=== PATIENT | female | born 1985 | race Caucasian/White ===

== ENCOUNTER 2020-03-07 16:06 | Outpatient (CLI) | payer BC, SELFPAY ==
--- NOTE | ~2020-03-07 | XR_ITS ---
EXAMINATION: XR foot LT min 3V DATE: 03/07/2020 17:09 INDICATION: Left foot pain TECHNIQUE: Dorsoplantar, lateral, and 2 oblique views of the left foot were obtained. COMPARISON: None. FINDINGS: There is no fracture, dislocation, or subluxation. The bones, soft tissues, and joint space s are normal. No radiopaque foreign body is identified. IMPRESSION: 1. No acute osseous abnormality or evidence of radiopaque foreign body. Reviewed, dictated and finalized at location A.
== END 2020-03-07 16:07 | disposition home or self-care (01) ==
LOC: ANHIMG 16:08
PROVIDERS: PCP Nurse Practitioner Adult Health; Visit Provider Nurse Practitioner Adult Health
DX: S99.922A Unspecified injury of left foot, initial encounter (principal)
CPT/HCPCS: 73630

== ENCOUNTER 2023-08-29 18:40 | Emergency (ER) | payer BC, SELFPAY ==
[2023-08-29 18:47] VITALS: BP 119/71; PULSE 91; RESP 18; TEMP 36.8; O2SAT 100
--- NOTE | 2023-08-29 18:47 | ED.URI ---
HPI - URI/Sore Throat General Chief Complaint: Upper Respiratory Infection Stated Complaint: Congestion Time Seen by Provider: 08/29/23 18:48 Source: patient Mode of arrival: ambulatory Limitations: no limitations History of Present Illness HPI Narrative: Rossi is a 37-year-old female patient presenting to the clinic today with complaints of sinus congestion x1 month and green drainage coming from bilateral eyes times 1-2 days. She reports that her eyes are itching and bothering her as well. Denies any known fever or chills. Is blowing out green nasal drainage. MD elicited complaint: rhinorrhea, nasal congestion and sinus pain Related Data Home Medications Medication Instructions Recorded Confirmed escitalopram oxalate 10 mg tablet 10 mg PO DAILY 01/21/23 08/29/23 norethindrone 1 mg-ethinyl 1 tablet PO DAILY 01/21/23 08/29/23 estradiol 20 mcg (21)-iron 75 mg (7) tablet (June12/07 (28)) lisdexamfetamine 60 mg capsule 60 mg PO DAILY 08/29/23 08/29/23 (Vyvanse) Allergies Allergy/AdvReac Type Severity Reaction Status Date / Time cefuroxime Allergy Severe Hives / Verified 08/29/23 18:51 Red Face levofloxacin Allergy Severe Hives / Verified 08/29/23 18:51 Red Face Review of Systems Review of Systems: Pertinent positives per HPI. Patient denies any fever, chills, rash, headache, visual changes, dizziness, cough, shortness of breath, chest pain, palpitations, nausea, vomiting, diarrhea, constipation, abdominal pain, or any urinary issues. [facility] Past Medical History Medical History Allergies Anxiety Asthma Family History Family History Mother Asthma Depression Grandparent Heart disease Cerebrovascular accident Social History Social History Smoking status: Never smoker Tobacco type: e-cigarettes/vaping Alcohol intake: never Substance use: never Lack of Transportation: No Lack of Food: Never True Current Housing: I Have Housing Concerned About Future Housing: No Difficulty Paying Gas/Electric Bills: No Difficulty Paying for Meds: No Currently Unemployed: No Education: Associate Degree Difficulty w/ Childcare or Family Care: No Comments At the time of my signature, I reviewed and agree with the nursing past medical, surgical, social, and family history. There is no relevant family history pertinent to the patient complaint. Exam Narrative: General: Well-developed, well nourished, in no apparent distress Head: Normocephalic, atraumatic Eyes: Pupils equally round and reactive to light bilaterally, EOM intact, sclera and conjunctive injected, green discharge, mild lids swelling Ears: TMs intact and clear, ear canals clear, no drainage, grossly hearing normal. Nose: Nares patent, clear nasal discharge, moderate inflammation, maxilla sinus tenderness. Mouth: Oral pharynx without lesions or masses, good dentition, MMM. Postnasal drip Neck: Supple, trachea midline, no enlargement of anterior or posterior cervical nodes, no thyroid masses or goiter palpable. Cardio: Regular rate and rhythm, s1 and s2 normal, no murmur appreciated. Resp: Clear to auscultation bilaterally, no rhonchi, rales, wheezing or rubs Course Course Emergency Course: Portions of this record may have been created with voice recognition software. Level of Care: Express Care Visit Vital Signs Vital signs: Vital signs reviewed MDM - URI/Sore Throat MDM Narrative Medical decision making narrative: At the time of visit patient is resting comfortably on the exam table. I suspect patient has acute bacterial rhinosinusitis with conjunctivitis. Prescription for tobramycin, Augmentin, and prednisone was prescribed for the patient. Patient has allergies to cefuroxime but has taken penicillins/Augmentin be
== END 2023-08-29 19:00 | disposition home or self-care (01) ==
PROVIDERS: Emergency Provider Nurse Practitioner Family; PCP Family Medicine
DX: J01.90 Acute sinusitis, unspecified (principal); H10.33 Unspecified acute conjunctivitis, bilateral; J45.909 Unspecified asthma, uncomplicated; F41.9 Anxiety disorder, unspecified
CPT/HCPCS: 99213; G0463

== ENCOUNTER 2024-01-06 17:24 | Emergency (ER) | payer BC, SELFPAY ==
--- NOTE | 2024-01-06 17:27 | ED.URI ---
HPI - URI/Sore Throat General Chief Complaint: Upper Respiratory Infection Stated Complaint: Sore Throat, Headache, Chills, Bodayache, Earache Time Seen by Provider: 01/06/24 17:28 Source: patient Mode of arrival: ambulatory Limitations: no limitations History of Present Illness HPI Narrative: Josefa is a 38-year-old female patient presenting to the clinic today with complaints of sore throat, headache, chills, body aches, and bilateral ear pain times 1-2 days. 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 MD elicited complaint: sore throat and nasal congestion Related Data Home Medications Medication Instructions Recorded Confirmed escitalopram oxalate 10 mg tablet 10 mg PO DAILY 01/21/23 01/06/24 norethindrone 1 mg-ethinyl 1 tablet PO DAILY 01/21/23 01/06/24 estradiol 20 mcg (21)-iron 75 mg (7) tablet (12/07 (28)) lisdexamfetamine 60 mg capsule 60 mg PO DAILY 08/29/23 01/06/24 (Vyvanse) Allergies Allergy/AdvReac Type Severity Reaction Status Date / Time cefuroxime AdvReac Intermediate Hives / Verified 01/06/24 17:26 Red Face levofloxacin AdvReac Intermediate Hives / Verified 01/06/24 17:26 Red Face Review of Systems Review of Systems: Pertinent positives per HPI. Patient denies any rash, headache, visual changes, dizziness, cough, shortness of breath, chest pain, palpitations, nausea, vomiting, diarrhea, constipation, abdominal pain, or any urinary issues. [facility] Past Medical History Medical History Allergies Anxiety Asthma Family History Family History Mother Asthma Depression Grandparent Heart disease Cerebrovascular accident Social History Social History Smoking status: Never smoker Tobacco type: e-cigarettes/vaping Alcohol intake: never Substance use: never Lack of Transportation: No Lack of Food: Never True Current Housing: I Have Housing Concerned About Future Housing: No Difficulty Paying Gas/Electric Bills: No Difficulty Paying for Meds: No Currently Unemployed: No Education: Associate Degree Difficulty w/ Childcare or Family Care: No Comments At the time of my signature, I reviewed and agree with the nursing past medical, surgical, social, and family history. There is no relevant family history pertinent to the patient complaint. Exam Narrative: General: Well-developed, well nourished, in no apparent distress Head: Normocephalic, atraumatic Eyes: Pupils equally round and reactive to light bilaterally, EOM intact, sclera and conjunctive clear, no discharge, lids normal Ears: TMs intact and clear, ear canals clear, no drainage, grossly hearing normal. Nose: Nares patent, clear nasal discharge, no inflammation, no sinus tenderness. Mouth: Oral pharynx red with bilateral tonsillar swelling and exudate without lesions or masses, good dentition, MMM. Neck: Supple, trachea midline, enlargement of anterior cervical nodes, no thyroid masses or goiter palpable. Cardio: Regular rate and rhythm, s1 and s2 normal, no murmur appreciated. Resp: Clear to auscultation bilaterally, no rhonchi, rales, wheezing or rubs Course Course Emergency Course: Portions of this record may have been created with voice recognition software. Level of Care: Express Care Visit Vital Signs Vital signs: Vital signs reviewed MDM - URI/Sore Throat MDM Narrative Medical decision making narrative: At the time of visit patient is resting comfortably on the exam table. Patient appears to be nontoxic. Labs: Strep test was positive. COVID and influenza testing was negative. Plan: Prescription for amoxicillin was sent to the pharmacy. Work note was given. supportive measures were discussed with the patient and they voiced understanding discharge instructions and agrees to
[2024-01-06 17:32] VITALS: BP 128/70; PULSE 118; RESP 18; TEMP 38.1; O2SAT 100
== END 2024-01-06 17:55 | disposition home or self-care (01) ==
PROVIDERS: Emergency Provider Nurse Practitioner Family; PCP Family Medicine
DX: J02.0 Streptococcal pharyngitis (principal); Z20.822 Contact with and (suspected) exposure to COVID-19; F41.9 Anxiety disorder, unspecified; J45.909 Unspecified asthma, uncomplicated
CPT/HCPCS: 87426; 87804; 87880; 99213; G0463

== ENCOUNTER 2024-04-15 11:48 | Outpatient (CLI) | payer BC, SELFPAY ==
--- NOTE | ~2024-04-15 | XR_ITS ---
EXAM: XR elbow LT 2V DATE: 04/15/2024 12:01 HISTORY: Pain in left elbow, feels like it gets locked, no injury . COMPARISON: None available. FINDINGS: Normal mineralization. No fracture or dislocation. No lytic or blastic lesion. Joint space s are maintained. No erosion or periosteal change. Amorphous calcification in the triceps tendon. IMPRESSION: No acute osseous finding the left elbow. Calcific triceps tendinitis. Reviewed, dictated and finalized at location K. IMPRESSION: No acute osseous finding the left elbow. Calcific triceps tendiniti s.
[2024-04-15 19:24] LABS: Hematocrit 46.4 % (37.0-47.0); Hemoglobin 14.7 g/dL (12.0-15.0); Mean Corpuscular HGB Conc 31.7 g/dl (32-36); Mean Corpuscular Hemoglobin 29.2 pg (26-34); Mean Corpuscular Volume 92.1 fl (80-100); Platelet Count Result 295 k/mm3 (150-375); Red Blood Count 5.04 M/mm3 (4.2-5.4); Red Cell Distribution Width 13.2 % (11.5-14.5); White Blood Count 7.2 K/mm3 (4.5-10.0)
[2024-04-15 19:57] LABS: Appearance Urine Clear (Clear); Bilirubin Urine Negative (Negative); Blood Urine Negative (Negative); Color Urine Yellow (Yellow); Glucose Urine UA Negative (Negative); Ketones Urine Negative (Negative); Leukocyte Esterase Ur Negative LEU/UL (Negative); Nitrate Urine Negative (Negative); Protein Urine Negative (Negative); Specific Grav Ur 1.022 (1.001-1.035); Urobilinogen Urine 0.2 mg/dL (<2.0); pH Urine 6.5 (5.0-9.0)
[2024-04-15 20:00] LABS: Add Urine Microscopic? NO
[2024-04-15 20:09] LABS: Iron 110 ug/dL (37-170)
[2024-04-15 20:19] LABS: Percent Iron Saturation 33 % (20-50)
[2024-04-15 20:26] LABS: Alanine Aminotransferase 19 U/L (6-35); Alkaline Phosphatase 83 U/L (38-126); Anion Gap 6 mmol/L (4-12); Aspartate Amino Transferase 99 U/L (14-36); Bilirubin,Total 0.8 mg/dL (0.2-1.3); Blood Urea Nitrogen 13 mg/dL (7-17); Calcium 9.4 mg/dL (8.4-10.2); Carbon Dioxide 30 mmol/L (22-30); Chloride 103 mmol/L (98-107); Cholesterol 183 mg/dL (0-200); Estimated Glomerular Filt Rate > 60; Glucose 81 mg/dL (65-110); HDL Direct 78 mg/dL; Potassium 4.1 mmol/L (3.4-5.0); Sodium 139 mmol/L (137-145); Triglycerides 65 mg/dL (<150)
[2024-04-15 20:38] LABS: LDL Cholesterol Direct 72 mg/dL
[2024-04-15 21:24] LABS: Hemoglobin A1C 4.9 % (<5.7)
[2024-04-15 21:34] LABS: Folic Acid 9.6 ng/mL (2.76->20)
== END 2024-04-15 11:49 | disposition home or self-care (01) ==
LOC: ANHBWCLAB 11:49
PROVIDERS: PCP Nurse Practitioner Adult Health; Visit Provider Nurse Practitioner Adult Health
DX: M65.222 Calcific tendinitis, left upper arm (principal); R53.83 Other fatigue; R63.1 Polydipsia; R39.9 Unspecified symptoms and signs involving the genitourinary system; Z13.9 Encounter for screening, unspecified
CPT/HCPCS: 36415; 73070; 80053; 80061; 81003; 82607; 82728; 82746; 83036; 83540; 83550; 84443; 85027

== ENCOUNTER 2024-04-20 11:53 | Outpatient (CLI) | payer BC, SELFPAY ==
[2024-04-20 19:44] LABS: Alanine Aminotransferase 17 U/L (6-35); Albumin Level 4.5 g/dL (3.5-5.1); Alkaline Phosphatase 79 U/L (38-126); Aspartate Amino Transferase 63 U/L (14-36); Bilirubin,Total 0.6 mg/dL (0.2-1.3)
== END 2024-04-20 11:54 | disposition home or self-care (01) ==
LOC: ANHBWCLAB 11:54
PROVIDERS: PCP Nurse Practitioner Adult Health; Visit Provider Nurse Practitioner Adult Health
DX: R74.8 Abnormal levels of other serum enzymes (principal)
CPT/HCPCS: 36415; 80076

== ENCOUNTER 2024-06-21 13:10 | Emergency (ER) | payer BC, SELFPAY ==
--- NOTE | ~2024-06-21 | XR_ITS ---
Right foot Technique: AP, oblique, and lateral views were obtained. Clinical History: Status post fall, plantar laceration Findings: No acute fracture or dislocation is seen. Osseous alignment is anatomic. Joint spaces are p reserved without erosive or degenerative change. Soft tissues are unremarkable. Impression: Unremarkable right foot radiographs. Reviewed, dictated and finalized at location . Impression: Unremarkable right foot radiographs.
[2024-06-21 13:21] VITALS: BP 112/65; PULSE 80; RESP 18; TEMP 36.8; O2SAT 100
[2024-06-21 13:22] VITALS: BP 112/65; PULSE 80; RESP 18; TEMP 36.8; O2SAT 100
--- NOTE | 2024-06-21 13:49 | ED.FALL ---
HPI - Fall General Chief Complaint: Fall Stated Complaint: fall Time Seen by Provider: 06/21/24 13:35 Source: patient, family and RN notes reviewed Mode of arrival: ambulatory Limitations: no limitations History of Present Illness HPI Narrative: Patient presents today with injury to her right foot. Yesterday, emergently, she jumped barefoot into her lumbee at home to save her dog, approx 8 feet down onto rocks. She reports a laceration to the bottom of her right foot and burning pain throughout the foot. She cleaned the foot with Bactine. States pain is worse today and currently rates her pain 8/10. She is unsure of the date of her last tetanus vaccine. Related Data Home Medications Medication Instructions Recorded Confirmed drospirenone (contraceptive) 4 mg 1 tablet PO DAILY 04/15/24 06/21/24 (28) tablet (Slynd) Allergies Allergy/AdvReac Type Severity Reaction Status Date / Time cefuroxime Allergy Intermediate Hives / Verified 06/21/24 13:21 Red Face levofloxacin Allergy Intermediate Hives / Verified 06/21/24 13:21 Red Face Review of Systems Review of Systems: CONSTITUTIONAL: Denies body aches, fever, chills, or sweats. EYES: Denies visual changes, redness, or discharge. ENT: Denies rhinorrhea, congestion, sore throat, or otalgia. CARDIOVASCULAR: Denies chest pain, palpitations, or edema. RESPIRATORY: Denies cough or dyspnea. GASTROINTESTINAL: Denies abdominal pain, nausea, vomiting, or diarrhea. GENITOURINARY: Denies dysuria or hematuria. SKIN: Denies rash, itching. +right foot laceration MUSCULOSKELETAL: right foot injury NEUROLOGIC: Denies headache, numbness, tingling, or weakness. PSYCH: Denies depression or anxiety. [facility] Past Medical History Medical History (Updated 06/21/24 @ 14:30 by Enma Atkins, [employer], ) Acute adjustment disorder with anxiety Allergies Anxiety Asthma Family History Family History Mother Asthma Depression Grandparent Heart disease Cerebrovascular accident Social History Social History (Updated 04/15/24 @ 11:17 by Hue Devries MA) Smoking status: Never smoker Tobacco type: e-cigarettes/vaping Alcohol intake: never Substance use: never Do You Feel Safe in your Home?: Yes Lack of Transportation: No Lack of Food: Never True Current Housing: I Have Housing Concerned About Future Housing: No Difficulty Paying Gas/Electric Bills: No Difficulty Paying for Meds: No Currently Unemployed: No Education: Associate Degree Difficulty w/ Childcare or Family Care: No Living arrangements: with family Occupation/Education: occupation Additional occupation/education comments: [employer] Gender identity (if verbalized by the patient): Female Agree to blood products: Yes Comments At time of signature, I have reviewed and agree with nursing past medical, surgical, social and family history unless otherwise noted. Please see nursing chart for further information. There is no relevant family history pertinent to the presenting complaint Exam Narrative: GENERAL: Well-appearing, well-nourished, and in no acute distress. HEAD: Normocephalic, atraumatic. EYES: EOMI. No redness or drainage. Conjunctivae normal. ENT: Mucous membranes pink and moist. NECK: Normal AROM. CHEST: No respiratory distress. EXTREMITIES: Right foot: 2cm scabbed laceration to the callused area at the 5th MTP, plantar aspect. Area is surrounded by erythema that is spreading medially to the arch and some mild ecchymosis. This area is tender to palpation. Superficial abrasions to the dorsal 1st MTP with surrounding erythema and ecchymosis. Scattered bruising and mild edema to the toes. Distal sensation intact, capillary refill normal, pedal pulse normal. Left foot: Tiny, very superficial partial skin avulsion to middle of bottom of foot. Skin trimmed with scissors. Dressed w band
[2024-06-21] MEDS: TETANUS,DIPHTHERIA,AC PERTUSSIS ADULT (0.5 ML) BOOSTRIX IM (13:56)
== END 2024-06-21 14:35 | disposition home or self-care (01) ==
PROVIDERS: Emergency Provider Nurse Practitioner; PCP Nurse Practitioner Adult Health
DX: L03.115 Cellulitis of right lower limb (principal); S91.311A Laceration without foreign body, right foot, initial encounter; W17.89XA Other fall from one level to another, initial encounter; Z23 Encounter for immunization; F17.290 Nicotine dependence, other tobacco product, uncomplicated; J45.909 Unspecified asthma, uncomplicated
CPT/HCPCS: 73630; 90471; 90715; 99213; G0463

== ENCOUNTER 2024-10-13 14:40 | Emergency (ER) | payer BC, SELFPAY ==
[2024-10-13 14:53] VITALS: BP 114/66; PULSE 88; RESP 16; TEMP 36.8; O2SAT 100
[2024-10-13 15:03] LABS: EDSTREPNEGPOS1 Negative (Negative)
--- NOTE | 2024-10-13 15:17 | ED_ITS ---
HPI - URI/Sore Throat General Chief Complaint: Upper Respiratory Infection Stated Complaint: sore throat / Ear Pain / Headache Time Seen by Provider: 10/13/24 15:17 Source: patient Mode of arrival: ambulatory Limitations: no limitations History of Present Illness HPI Narrative: 38-year-old female presents with complaint of sore throat, nasal drainage, sinus issues, bilateral ear itching. history of sinus surgery 10 years ago. Has polyp to left sinus cavity. Stop taking her antihistamines she did not to lift they were helping. Also thinks she has tonsil stone. All systems reviewed and negative except as noted above. Related Data Home Medications Medication Instructions Recorded Confirmed drospirenone (contraceptive) 4 mg 1 tablet PO DAILY 04/15/24 10/13/24 (28) tablet (Slynd) Allergies Allergy/AdvReac Type Severity Reaction Status Date / Time cefuroxime Allergy Intermediate Hives / Verified 10/13/24 15:01 Red Face levofloxacin Allergy Intermediate Hives / Verified 10/13/24 15:01 Red Face Review of Systems Review of Systems: CONSTITUTIONAL: Denies fever, chills, or sweats. EYES: Denies visual changes, redness, or discharge. ENT: Reports rhinorrhea, congestion, sore throat, tonsil stone, bilateral ear itching CARDIOVASCULAR: Denies chest pain, palpitations, or edema. RESPIRATORY: Denies cough or dyspnea. GASTROINTESTINAL: Denies abdominal pain, nausea, vomiting, or diarrhea. GENITOURINARY: Denies dysuria or hematuria. SKIN: Denies rash or itching. MUSCULOSKELETAL: Denies back pain, joint pain, or myalgia. NEUROLOGIC: Denies headache, numbness, or weakness. PSYCHIATRIC: Denies anxiety or depression. All other systems reviewed are negative, except as documented in HPI. [facility] Past Medical History Medical History (Updated 10/13/24 @ 15:26 by Yolette Muller NP) Acute adjustment disorder with anxiety Allergies Anxiety Asthma Family History Family History Mother Asthma Depression Grandparent Heart disease Cerebrovascular accident Social History Social History (Updated 04/15/24 @ 11:17 by Hue Devries MA) Smoking status: Never smoker Tobacco type: e-cigarettes/vaping Alcohol intake: never Substance use: never Do You Feel Safe in your Home?: Yes Lack of Transportation: No Lack of Food: Never True Current Housing: I Have Housing Concerned About Future Housing: No Difficulty Paying Gas/Electric Bills: No Difficulty Paying for Meds: No Currently Unemployed: No Education: Associate Degree Difficulty w/ Childcare or Family Care: No Living arrangements: with family Occupation/Education: occupation Additional occupation/education comments: [employer] Gender identity (if verbalized by the patient): Female Agree to blood products: Yes Comments At time of signature, agree with nursing past medical, surgical, social and family history. There is no relevant family history pertinent to the presenting complaint. Exam Narrative: GENERAL: This is a well-nourished, well-developed patient, in no apparent distress. HEAD: normocephalic, atraumatic. EYES: PERRL. Sclera clear/white. Vision is grossly intact. EARS: External ears normal, auditory canals clear and without drainage, TMs normal without perforation. Hearing grossly intact. NOSE: External nose normal with Mild congestion, erythema and swelling to bilateral nares THROAT: Mucous membranes moist, posterior pharynx clear. tonsil stone to right tonsil. A mild erythema with postnasal drainage noted. NECK: Neck supple, non-tender without lymphadenopathy, masses or thyromegaly. CARDIOVASCULAR: Regular rate and rhythm without murmurs, gallops, or rubs. RESPIRATORY: Clear to auscultation. Breath sounds equal bilaterally. No wheezes, rales, or rhonchi. SKIN: warm, Dry, intact with no suspicious lesions or rash, good texture and turgor. NEURO: awake, alert, and oriented to person, place and time. There were no obvious focal neurologic abnormalities. EXTREMITIES: No joint tenderness, effusion, or edema noted. Course Course Level of Care: Express Care Visit Vital Signs Vital signs: Vital Signs Temperature 36.8 C 10/13/24 14:53 Pulse Rate 88 10/13/24 14:53 Respiratory Rate 16 10/13/24 14:53 Blood Pressure 114/66 10/13/24 14:53 Pulse Oximetry 100 10/13/24 14:53 Oxygen Delivery Room Air 10/13/24 14:53 Temperature 36.8 C 10/13/24 14:53 Pulse Rate 88 10/13/24 14:53 Respiratory Rate 16 10/13/24 14:53 Blood Pressure 114/66 10/13/24 14:53 Pulse Oximetry 100 10/13/24 14:53 Oxygen Delivery Room Air 10/13/24 14:53 reviewed MDM - URI/Sore Throat MDM Narrative Medical decision making narrative: patient is ear canals and TMs normal. No signs infection or dry skin that may be causing itching. Recommend she restart her antihistamines. Will treat patie nt with antibiotic for bacterial sinusitis due to duration of symptoms. Patient is aware of diagnosis, understands and agrees to treatment plan. Anticipatory guidance given. Patient agrees to follow-up as directed and is aware of reasons to seek care at the emergency department. Portions of this record may have been created with voice recognition software Lab Data Labs: Lab Results 10/13/24 Range/Units 15:00 POC Grp A Strep Screen Negative (Negative) Discharge Plan Discharge Clinical Impression: Acute bacterial sinusitis, Tonsil stone Patient Disposition: Home, Self-Care Condition: Stable Instructions: Antibiotic Form, Sinusitis (ED) Additional Instructions: Take medications as prescribed. Start an [id number] antihistamine such as Claritin or Zyrtec and take as directed on packaging. Gargle with salt water or mouthwash to help remove tonsil stone. Follow-up with your primary care physician if symptoms are not improving. Prescriptions: New azelastine 205.5 mcg (0.15 %) spray,non-aerosol 2 spray intranasal DAILY Qty: 30 0RF Rx Instructions: administer into each nostril amoxicillin 875 mg tablet 875 mg PO Q12H 10 Days Qty: 20 0RF No Action Slynd 4 mg (28) tablet 1 tablet PO DAILY cyanocobalamin (vitamin B-12) 1,000 mcg tablet, sublingual 1,000 mcg sublingual DAILY Qty: 90 1RF escitalopram oxalate 10 mg tablet See Rx Instructions .ROUTE .COMPLEX Qty: 90 0RF Dose Instruction: TAKE 1 TABLET BY MOUTH DAILY Rx Instructions: TAKE 1 TABLET BY MOUTH DAILY lisdexamfetamine [Vyvanse] 60 mg capsule 60 mg PO DAILY Qty: 30 0RF Follow-up/Referrals: Shirley Argueta APRN [Primary Care Provider] - Time of Disposition: 15:27
== END 2024-10-13 15:35 | disposition home or self-care (01) ==
PROVIDERS: Emergency Provider Nurse Practitioner Family; PCP Nurse Practitioner Adult Health
DX: J01.90 Acute sinusitis, unspecified (principal); B96.89 Other specified bacterial agents as the cause of diseases classified elsewhere; J35.8 Other chronic diseases of tonsils and adenoids
CPT/HCPCS: 87081; 87880; 99213; G0463

== ENCOUNTER 2025-04-20 14:00 | Outpatient (CLI) | payer BC, SELFPAY ==
--- OUTSIDE RECORDS SUMMARY | 2025-04-20 14:04 | XMS_ITS | Clinical Summary ---
Author Organization [facility] Address [address] [place] [address] Care Team Providers Care Mobile Home Set Up Person Name Role Phone Shirley Argueta Primary Care Provider + Source Comments [facility],non-owned Affiliates and Associated Physician Practices is amultiple site organization consisting of ambulatory clinics and hospital sitesin [place], [place], [place] and [place]. This disclosure is being madepursuant to the Care Everywhere program and may not contain all information available regarding this patient. Last updated 18.[facility] Allergies Active Allergy Reactions Criticality Noted Date Comments Cefuroxime Swelling,Unknown,Sandro sea and/or Vomiting Medium 02/21/2021 Throat and mouth swelling and itching Levofloxacin Swelling,Urticaria High 02/21/2021 Throat and mouth swelling and itching Medications * Be aware that medications may not be up to date on this document. Alwaysverify current medications with the patient. albuterol HFA (Proventil; Ventolin; Proair) 108 (90 Base) MCG/ACT inhaler Inhale 2 (two) puffs by mouth every 4 hours as needed Active escitalopram (Lexapro) 10 MG tablet Take 1 (one) tablet by mouth once daily Active lisdexamfetami ne (Vyvanse) 60 MG capsule Take 1 (one) capsule by mouth once daily Active Drospirenone (Slynd) 4 MG TABS tablet Take 1 (one) tablet by mouth once daily Active acetaminophen (Tylenol) 325 MG tablet Take 2 (two) tablets by mouth every 6 hours Maximum allowable Acetaminophen amount = 4 Grams (4000 mg) / 24 hours. 60 tablet 04/16/2025 12:26 PM CDT 5 Active ibuprofen (Motrin) 600 MG tablet Take 1 (one) tablet by mouth every 6 hours 30 tablet 04/16/2025 12:26 PM CDT 5 Active oxyCODONE, immediate release, (Roxicodone) 5 MG tabletIndicati ons:Radial scar of breast Take 1 (one) tablet by mouth every 6 hours as needed for Pain 12 tablet 04/16/2025 12:26 PM CDT 5 Active Encounters Date Type Department Care Team Description 04/16/2025 9:20 AM CDT Anesthesia Event [facility] [address] [place] [address] Wellington Gaspar II, MD [place], Nutressa A, APRN-NEWSPAPER PHOTOGRAPHER 04/16/2025 8:56 AM CDT - 04/16/2025 10:16 AM CDT Surgery [facility] [address] [place] [address] Genesis Cerna MD LEFT BREAST EXCISIONAL BIOPSY WITH MAGSEED GUIDANCE 04/16/2025 6:58 AM CDT - 04/16/2025 12:40 PM CDT Hospital Encounter [facility] [address] [place] [address] Genesis Cerna MD Surgery General Discharge Disposition: Home or Self Care 04/16/2025 Travel 04/15/2025 Travel 04/08/2025 10:56 AM CDT - 04/08/2025 11:59 PM CDT Hospital Encounter [facility] [address] [place] [id number] Shirley Argueta FARM LABORER-NEWSPAPER PHOTOGRAPHER Discharge Disposition: Home or Self Care 04/08/2025 Travel 03/26/2025 Orders Only [facility] - General Surgery [address] [place] [phone] Genesis Cerna MD Radial scar of left breast 03/25/2025 Telephone [facility] - General Surgery [address] [place] [phone] Bessie Mena, [place] Discuss Surgery 03/12/2025 10:19 AM CDT - 03/12/2025 11:59 PM CDT Hospital Encounter [facility] - Outside Imaging Discharge Disposition: Home or Self Care 03/12/2025 10:19 AM CDT - 03/12/2025 11:59 PM CDT Hospital Encounter [facility] - Outside Imaging Discharge Disposition: Home or Self Care 03/09/2025 11:25 AM CDT - 03/09/2025 11:59 PM CDT Hospital Encounter [address] [address] Genesis Cerna MD Discharge Disposition: Home or Self Care 03/09/2025 10:00 AM CDT Office Visit [facility] - General Surgery [address] [place] [phone] Genesis Cerna MD Radial scar of left breast (Primary Dx); Left axillary pain 03/05/[address] [address] Pat Spencer, [place] Follow-up (Pt confirmed for Dr Cerna appt 03/09/25 with 0930 arrival to [facility] following breast biopsy results at [facility], radial scar/complex sclerosing lesion. Reviewed POC and arrival location for her appt. ) 02/11/2025 8:00 AM CDT - 02/11/2025 8:17 AM CDT Hospital Encounter [address] [address] Shirley Argueta, CASI-NEWSPAPER PHOTOGRAPHER Discharge Disposition: Home or Self Care 02/11/2025 Telephone [facility] - Vascular Surgery [address] [facility] [place] [address] Frederic Deng MD Procedure 02/11/2025 Travel 02/01/2025 3:15 PM CDT - 02/01/2025 11:59 PM CDT Hospital Encounter [address] [address] Shirley Argueta APRN-CORINNE Discharge Disposition: Home or Self Care 02/01/2025 Travel 01/25/2025 Lab Requisition [facility] [address] [place] [phone] Terra Jackman PA 01/25/2025 Lab Requisition [facility] [address] [place] [phone] Talita Lopez MD from Last 3 Months Social History Tobacco Use Types Packs/Day Years Used Date Smoking Tobacco: Former Cigarettes Smokeless Tobacco: Never Tobacco Cessation:Counseling Given: Not Answered Alcohol Use Standard Drinks/Week Comments Never 0 (1 standard drink = 0.6 oz pur e alcohol) AUDIT-C Answer Date Recorded Q1: How often do you have a drink containing alc ohol? Monthly or less 06/12/2024 Q2: How many drinks containi ng alcohol do you have on a typical day when you are drinking? 1 or 2 06/12/2024 Q3: How often do you have si x or more drinks on one occasion? Never 06/12/2024 Comments No Sex and Gender Information Value Date Recorded Sex Assigned at Female 01/27/2025 8:36 PM CDT Legal Sex Female 2:22 PM CDT Gender Identity Female 01/27/2025 8:36 PM CDT Sexual Orientation Straight 01/27/2025 8: 36 PM CDT Last Filed Vital Signs Vital Sign Reading Time Taken Comments Blood Pressure 108/82 04/16/2025 11:55 AM CDT Pulse 70 04/16/2025 11:55 AM CDT Temperature 36.6 C (97.8 F) 04/16/2025 12:26 PM CDT Respiratory Rate 12 04/16/2025 11:55 AM CDT Oxygen Saturation 99% 04/16/2025 11:55 AM CDT Inhaled Oxygen Concentration - - Weight 89.8 kg (198 lb) 04/16/2025 8:00 AM CDT Height 172.7 cm (5' 8) 04/16/2025 8:00 AM CDT Body Mass Index 30.11 04/16/2025 8:00 AM CDT Plan of Treatment Upcoming Encounters Date Type Department Care Team (Late st Contact Info) Description 09/16/2025 10:00 AM CDT Appointment [facility] [address] [place] [address] Genesis Cerna MD [address] [facility] [address] [place] [phone] 09/16/2025 10:30 AM CDT Appointment [facility] [address] [place] [phone] Genesis Cerna MD [address] [facility] [address] [place] [address] 09/16/2025 11:30 AM CDT Office Visit [facility] - General Surgery [address] [place] [phone] Genesis Cerna MD [address] [facility] [address] [place] [address] Health Maintenance Due Date Last Done Comments PAP SMEAR 1984 HIV SCREENING 1999 HEPATITIS C SCREENING 11/26/2002 DTAP/TDAP/TD VACCINES (1 - Tdap) 2003 HEPATITIS B VACCINE (1 of 3 - 19+ 3-dose series) 2003 COVID-19 VACCINE ( - 2023-2 5 season) 2024 DEPRESSION SCREENING 11/18/2024 INFLUENZA VACCINE (Season Ended) 2025 MAMMOGRAM 02/11/2027 02/11/2025, 02/01/2025 SCREENING FOR DIABETES 01/26/2028 , 01/25/2025, 01/25/2025 LIPID TESTING 01/25/2030 01/25/2025 ZOSTER VACCINE (1 of 2) 2034 HIB VACCINE Aged Out No longer eligi ble based on patient's age to complete this topic HPV VACCINE Aged Out No longer eligi ble based on patient's age to complete this topic MENINGOCOCCAL (Group B) VACCINE SHARED DECISION-MAKING Aged Out No longer eligible based on patient's age to complete this topic MENINGOCOCCAL GROUPS A/C/Y/W VACCINE Aged Out No longer eligible b ased on patient's age to complete this topic PNEUMOCOCCAL VACCINE Aged Out No long er eligible based on patient's age to complete this topic Medical Devices Implanted Type Area Sustainability Specialist Device Identifier Shelf Expiration Date Model / Serial / Lot Coil Pod 60cm 10-12mm Embl Implanted:Qty: 1 on 06/12/2024 by Frederic Deng MD at [facility] Left: [employer] 05/23/2029 [id number] / / [id number] Coil Pod 60cm Pk Embl J-Sft Strl Lf Implanted:Qty: 1 on 06/12/2024 by Frederic Deng MD at [facility] Left: [employer] 08/05/2031 [id number] / / [id number] Coil Pod 45cm Pk Embl J-Sft Strl Lf Implanted:Qty: 1 on 06/12/2024 by Frederic Deng MD at [facility] Left: [employer] 10/15/2026 [id number] / / [id number] Coil Jacquie Pod 60cm 8mm Cmplx Occulusion Implanted:Qty: 1 on 06/12/2024 by Frederic Deng MD at [facility] Left: [employer] 12/29/2030 [id number] / / [id number] Procedures Procedure Name Priority Date/Time Associated Diagnosis Comments PATHOLOGY TISSUE Routine 04/16/2025 10:00 AM CDT Radial scar of breast LARYNGEAL MASK AIRWAY Routine 04/16/2025 9:41 AM CDT MAMMO BREAST LEFT SPECIMEN Routine 04/16/2025 9:34 AM CDT Radial scar of left breast WY EXC BREAST CYST OPEN 1 OR MORE LESIONS 04/16/2025 9:14 AM CDT Radial scar of breast Case Notes MAGSEED PLACEMENT 04/08/25 Special Needs Supine SENTIMAG PROBE 04/15amy HCG URINE QUALITATIVE - POCT (IP) INTERFACED Routine 04/16/2025 7:33 AM CDT HCG URINE QUAL POCT NOTIFICATION STAT 04/16/2025 7:14 AM CDT Pre-op evaluation MAMMO LEFT NEEDLE LOCALIZATION Routine 04/08/2025 12:33 PM CDT Radial scar of left breast US AXILLA LEFT Routine 03/09/2025 11:54 AM CDT Left axillary pain MM OUTSIDE MAMMOGRAM LEFT Routine 03/02/2025 10:33 AM CDT MM OUTSIDE MAMMOGRAM LEFT Routine 03/02/2025 10:33 AM CDT MAMMO LEFT DIAGNOSTIC W YANDEL Routine 02/11/2025 9:06 AM CDT Abnormal mammogram MAMMO BILAT SCREENING W YANDEL Routine 02/01/2025 3:57 PM CDT Visit for screening mammogram DERMATOPATHOLOGY Routine 01/25/2025 2:08 PM CDT from Last 3 Months Results * PATHOLOGY TISSUE (04/16/2025 10:00 AM CDT) Case Report Surgical Pathology Report Case: [id number] Authorizing Provider: Genesis Cerna MD Collected: 04/16/2025 10:00 AM Ordering Location: [facility] Received: 04/16/2025 10:57 AM Pathologist: Fernandez Lopez MD Specimen: Breast Mast Smpl, LEFT BREAST EXCISIONAL BIOPSY, LONG STITCH LATERAL, SHORT STITCH SUPERIOR, DOUBLE STITCH DEEP 04/19/2025 11:22 AM CDT [facility] Final Diagnosis Left breast, excisional biopsy: - Dense breast tissue with previous surgical site changes, fibrosis, and suture granuloma (Magseed and biopsy clip both present). - No residual radial scar identified. - Negative for malignancy. 04/19/2025 11:22 AM [facility] at 1122 CDT Microscopic Description and Comment Microscopic examination is performed and supports the final diagnosis. Fibrocystic changes with apocrine metaplasia are also present. 04/19/2025 11:22 AM [facility] Clinical History Left breast radial scar 04/19/2025 11:22 AM [facility] Gross Description The requisition and specimen(s) are identified with the patient's name, Josfea Blanco. Received fresh and placed in formalin, labeled specimen A, is a piece of breast tissue 5.2 cm medial to lateral; 2.0 cm superior to inferior; and 1.5 cm anterior to posterior. A short suture rothman the superior, and a long suture rothman the lateral. The margins are inked as follows: Superior-blue, inferior-green, lateral-orange, medial-red, anterior-yellow, posterior-black. Sectioning shows an ill-defined area of white firm fibrous tissue containing a Magseed and X biopsy clip measuring 1.3 cm in greatest dimension. This tissue abuts the anterior, inferior, and superior margins. It is located 0.6 cm from the posterior margin; 1.5 cm from the media and lateral margins. The uninvolved breast is soft and fatty. Cheese Processor sections are submitted as follows: A1, lateral margin, perpendicular; A2-A9, entire central specimen, submitted sequentially from lateral to medial, with Magseed site in A5 and clip site in A6; A10, medial margin. AL/DJE Specimen processing times on April 16, 2025 are as follows: Time of excision: 1000 Time specimen is cut and placed in formalin: 1028 Time out of formalin: 1620 on April 18, 2025 Total formalin fixation time: 53 hours and 52 minutes Total cold ischemia time: 28 minutes 04/19/2025 11:22 AM [facility] Pathologist Location at [facility] 04/19/2025 11:22 AM [facility] Disclaimer The performance characteristics of all immunohistochemical and indirect immunofluorescence stains (if any) cited in this report were determined by the [facility] of [facility]. Some of these tests were developed by our own laboratory and have not been cleared or approved by the US Food and Drug Administration. The FDA does not require this test to go through premarket FDA review. These tests are used for clinical purposes. They should not be regarded as investigational or for research. This laboratory is certified under the Clinical Laboratory Improvement Amendments (CLIA) as qualified to perform high complexity clinical laboratory testing. This case has been personally reviewed and interpreted by the attending (teaching) pathologist. 04/19/2025 11:22 AM CDT [facility] Embedded Images 04/19/2025 11:22 AM CDT [facility] Biopsy, Excision SIMPLE MASTECTOMY / Unknown 04/16/2025 10:00 AM CDT 04/16/2025 10:57 AM CDT Comment:Pre-op diagnosis: LEFT BREAST RADIAL SCAR Genesis Cerna MD LAB - PATHOLOGY/CYTOLOGY OR DERABLES Final Result Performing Organization Address City/State/[facility] Co de Phone Number [facility] [address] [phone] * LARYNGEAL MASK AIRWAY (04/16/2025 9:41 AM CDT) Narrative Jose A Vargas CAA - 04/16/2025 9:41 AM CDT Jose A Vargas CAA 04/16/2025 9:41 AM LMA Placement Procedure/LDA Note: Patient Location: OR. LMA Insertion Date/Time: 04/16/2025 9:28 AM Procedure: LMA Pretreatment: 100% O2 Patient position: supine. Mask Ventilation: easy Type: gel LMA Size: 3 Number of Attempts: 1. Placement verified by: direct visualization and CO2 monitor Dentition unchanged? Yes Procedure Start Time: 04/16/2025 9:28 AM. Staff Section Anesthesia Provider: Wellington Gaspar II, MD, Performed the procedure Wellington Gaspar II, MD GENERAL ANESTHESIA ORDERABL ES Final Result * Mammo Breast Left Specimen (04/16/2025 9:34 AM CDT) Anatomical Region Laterality Modality Breast Left Mammography 04/16/2025 3:05 PM CDT Impressions 04/16/2025 3:22 PM CDT IMPRESSION: Calcifications, an X shaped biopsy clip, and the Magseed, are contained within the specimen. Please note a follow-up diagnostic mammogram is due in July 2025 for follow-up of the unsampled calcifications in the left breast. No call to the operating room was requested. Findings and recommendations were communicated to Dr. Cerna by Dr. Bolton via phone at 3:19 PM on 04/16/2025. > Interpreting Provider: Lisa Bolton MD on 04/16/2025 3:22 PM Narrative 04/16/2025 3:22 PM CDT EXAM: SPECIMEN RADIOGRAPH FROM THE LEFT BREAST LOCATION: [facility] EXAM DATE: 04/16/2025 HISTORY: History of atypia for surgical excision. COMPARISON: Comparison is made with relevant prior imaging in PACS dating back to 02/01/2025. TECHNIQUE: Digital images obtained of the surgical specimen. FINDINGS: Calcifications, an X shaped biopsy clip, and the Magseed, are contained within the specimen. Procedure Note Lisa Bolton MD - 04/16/2025 EXAM: SPECIMEN RADIOGRAPH FROM THE LEFT BREAST LOCATION: [facility] EXAM DATE: 04/16/2025 HISTORY: History of atypia for surgical excision. COMPARISON: Comparison is made with relevant prior imaging in PACSdating back to 02/01/2025. TECHNIQUE: Digital images obtained of the surgical specimen. FINDINGS: Calcifications, an X shaped biopsy clip, and the Magseed, are contained within the specimen. IMPRESSION: Calcifications, an X shaped biopsy clip, and the Magseed,are contained within the specimen. Please note a follow-up diagnosticmammogram is due in July 2025 for follow-up of the unsampled calcificationsin the left breast. No call to the operating room was requested. Findings and recommendations were communicated to Dr. Cerna by via phone at 3:19 PM on 04/16/2025. > Interpreting Provider: Lisa Bolton MD on 04/16/2025 3:22 PM us Genesis Cerna MD MAMMO ORDERABLES Final Resu lt * HCG URINE QUALITATIVE - POCT (IP) INTERFACED (04/16/2025 7:33 AM CDT) HCG Qual Urine Negative Negative 04/16/2025 7:40 AM CDT [facility] Urine URINE / Unknown 04/16/2025 7 :33 AM CDT 04/16/2025 7:40 AM CDT us Genesis Cerna MD LAB - POINT OF CARE ORDERAB LES Final Result Performing Organization Address [facility] [address]/ZIP Co de Phone Number [address] [address], [facility] [phone] * HCG URINE QUAL POCT NOTIFICATION (04/16/2025 7:14 AM CDT) Comment Notification Label Only - See Separate Report 04/16/2025 8:30 AM CDT [facility] Urine URINE / Unknown 04/16/2025 7 :14 AM CDT 04/16/2025 7:29 AM CDT us Yonga A Sorensen FARM LABORER-NEWSPAPER PHOTOGRAPHER LAB - URINALYSIS ORDE RABLES Final Result Performing Organization Address [facility] [address]/[facility] de Phone Number [address] [address], [place] [phone] * Mammo Left Needle Localization (04/08/2025 12:33 PM CDT) Anatomical Region Laterality Modality Breast Left Mammography 04/08/2025 1:18 PM CDT Impressions 04/08/2025 1:51 PM CDT IMPRESSION: Technically successful, uncomplicated, mammographically- guided MagSeed placement in the upper outer quadrant of the LEFT breast, just medial and posterior to the X-shaped tissue marker and within 0.8 cm of the calcifications, which were the target of biopsy at the site of known radial scar. Patient will follow-up with Dr. Cerna regarding the upcoming breast surgery. > Interpreting Provider: Danna Carrillo MD, FACR on 04/08/2025 1:51 PM Narrative 04/08/2025 1:51 PM CDT EXAM: MAGSEED LOCALIZATION / PLACEMENT UNDER MAMMOGRAPHIC GUIDANCE, INCLUDING A POST PROCEDURE MAMMOGRAM WITH TOMOSYNTHESIS-LEFT BREAST LOCATION: [facility] EXAM DATE: 04/08/2025 HISTORY: Patient presents for MagSeed placement adjacent to a X-shaped tissue marker in the upper outer quadrant of the LEFT breast at the site of the radial scar. Of note, on the postbiopsy mammogram, the tissue marker is approximately 1 cm anterior to and 1 cm lateral to the calcifications which were biopsied, demonstrating a radial scar. COMPARISON: Prior outside stereotactic biopsy 03/12/2025 and mammogram 02/11/2025 and 02/02/2025. TECHNIQUE AND FINDINGS: Preprocedure images were reviewed. The tissue marker is approximately 1 cm lateral to and one cm anterior to the calcifications. The procedure and its risks, including bleeding and infection, as well as unsuccessful localization, and the potential benefits of the procedure were discussed with the patient, and written and verbal informed consent was obtained. After confirming the correct breast for Magseed placement, this breast was marked with a marking pen. Prior to the procedure a timeout was performed, including verification of the laterality of the breast for seed placement. The LEFT breast was placed in the mammographic grid in a lateral to medial position at the start of the procedure. The X-shaped marker in the breast was contained within the grid. This was then localized on the skin surface. 5 cc of 1% lidocaine buffered with bicarbonate was given for local anesthesia of the skin surface and deeper soft tissues. A 7 cm 18-gauge needle containing the seed for localization was then inserted perpendicular to the skin surface and confirmed with an image. The patient was then carefully removed from the mammographic grid and placed in the 90 degrees mammographic position. An image was obtained, and the needle was repositioned to the appropriate depth. The seed was deployed, without incident. A mammographic image was obtained. The MagSeed is directly adjacent to the X-shaped marker. Estimated blood loss: None Mammogram: As part of the procedure, a two-view LEFT mammogram with tomosynthesis (3D) and reconstructed C-view( 2D) images with CC and true lateral projections was obtained to check the MagSeed placement. Breast Composition: Category C: The breasts are heterogeneously dense which may obscure small masses. The Magseed is in good position adjacent to the X shaped marker. Of note, as the tissue marker is lateral and anterior to the calcifications on the prelocalization images. On the post localization images, the Magseed is approximately 0.6 cm ventral to the calcifications on the true lateral view and 0.8 cm posterior to the calcifications on the craniocaudal view. The Magseed is within 1 cm of the X-shaped tissue marker and the calcifications. ASSESSMENT: POSTPROCEDURE MAMMOGRAM FOR MARKER PLACEMENT The patient tolerated the procedure well and was discharged in good condition for her surgical operation planned a later date. The attending physician, Danna Carrillo MD, was present for and performed the entire procedure. Procedure Note Danna Carrillo MD - 04/08/2025 EXAM: MAGSEED LOCALIZATION / PLACEMENT UNDER MAMMOGRAPHIC GUIDANCE, INCLUDING A POST PROCEDURE MAMMOGRAM WITH TOMOSYNTHESIS-LEFT BREAST LOCATION: [facility] EXAM DATE: 04/08/2025 HISTORY: Patient presents for MagSeed placement adjacent to a X-shaped tissue marker in the upper outer quadrant of the LEFT breast at the siteof the radial scar. Of note, on the postbiopsy mammogram, the tissue markeris approximately 1 cm anterior to and 1 cm lateral to the calcificationswhich were biopsied, demonstrating a radial scar. COMPARISON: Prior outside stereotactic biopsy 03/12/2025 and mammogram 02/11/2025 and 02/02/2025. TECHNIQUE AND FINDINGS: Preprocedure images were reviewed. The tissue marker is approximately 1 cm lateral to and one cm anterior to the calcifications. The procedure and its risks, including bleeding and infection, as wellas unsuccessful localization, and the potential benefits of the procedurewere discussed with the patient, and written and verbal informed consent was obtained. After confirming the correct breast for Magseed placement,this breast was marked with a marking pen. Prior to the procedure a timeoutwas performed, including verification of the laterality of the breast forseed placement. The LEFT breast was placed in the mammographic grid in a lateral tomedial position at the start of the procedure. The X-shaped marker in thebreast was contained within the grid. This was then localized on the skinsurface. 5 cc of 1% lidocaine buffered with bicarbonate was given for local anesthesia of the skin surface and deeper soft tissues. A 7 cm 18-gauge needle containing the seed for localization was then inserted perpendicular to the skin surface and confirmed with an image.The patient was then carefully removed from the mammographic grid and placedin the 90 degrees mammographic position. An image was obtained, and the needle was repositioned to theappropriate depth. The seed was deployed, without incident. A mammographic image was obtained. The MagSeed is directly adjacent tothe X-shaped marker. Estimated blood loss: None Mammogram: As part of the procedure, a two-view LEFT mammogram with tomosynthesis (3D) and reconstructed C-view( 2D) images with CC and true lateral projections was obtained to check the MagSeed placement. Breast Composition: Category C: The breasts are heterogeneously densewhich may obscure small masses. The Magseed is in good position adjacent to the X shaped marker. Ofnote, as the tissue marker is lateral and anterior to the calcifications onthe prelocalization images. On the post localization images, the Magseed is approximately 0.6 cm ventral to the calcifications on the true lateralview and 0.8 cm posterior to the calcifications on the craniocaudal view. The Magseed is within 1 cm of the X-shaped tissue marker and the calcifications. ASSESSMENT: POSTPROCEDURE MAMMOGRAM FOR MARKER PLACEMENT The patient tolerated the procedure well and was discharged in good condition for her surgical operation planned a later date. The attending physician, Danna Carrillo MD, was present for and performed the entire procedure. IMPRESSION: Technically successful, uncomplicated, mammographically- guided MagSeed placement in the upper outer quadrant of the LEFT breast, just medialand posterior to the X-shaped tissue marker and within 0.8 cm of the calcifications, which were the target of biopsy at the site of knownradial scar. Patient will follow-up with Dr. Cerna regarding the upcoming breast surgery. > Interpreting Provider: Danna Carrillo MD, FACR on 04/08/2025 1:51 PM us Genesis Cerna MD MAMMO ORDERABLES Final Resu lt * (ABNORMAL) US Axilla Left (03/09/2025 11:54 AM CDT) Anatomical Region Laterality Modality Breast Left Mammography 03/09/2025 11:3 7 AM CDT Impressions 03/09/2025 11:59 AM CDT IMPRESSION: 1. No sonographic evidence of malignancy in the left axilla. 2. No suspicious sonographic finding in the left axilla to correspond with patient's palpable abnormality. A morphologically normal mid axillary lymph node is in the region of patient's palpable area of concern and likely accounts for the clinical finding. 3. Of note, the patient underwent stereotactic core needle biopsy at [facility] on 03/02/2025 targeting anterior breast calcifications with pathology results yielding radial scar/complex sclerosing lesion (a benign but high risk finding), for which surgical excision has been recommended. The patient is currently undergoing surgical consultation with Dr. Cerna to discuss possibility of excision versus short interval follow-up in the lumen of additional intervention. Regardless of the decision to undergo or not undergo surgical excision, a second group of more posterior calcifications in the left breast were not biopsied and have been designated as probably benign warranting short interval follow-up in 6 months (please refer to below recommendation for further detailed and timeline of recommended follow-up study). RECOMMENDATION: 1. A short interval follow-up left diagnostic mammogram is recommended in 6 months to confirm interval stability of the second group of calcifications in the left breast which were not biopsied at the outside facility. Of note, at that time it will also be apparent whether or not the patient decided to undergo surgical excision of the biopsy-proven anterior left breast radial scar. Stability should be established at the site of excision this time as well. If no excision has been performed, stability at the previous biopsy site should be confirmed. Patient was notified of the results at the time of her study. She was seen by Dr. Cerna in breast clinic today. Patient will also receive the exam results by lay letter. OVERALL ASSESSMENT: BI-RADS CATEGORY 3: PROBABLY BENIGN. > Interpreting Provider: Zhanna Sandra DO on 03/09/2025 11:59 AM Narrative 03/09/2025 11:59 AM CDT EXAMINATION: Left AXILLARY ULTRASOUND LOCATION: [facility] EXAM DATE: 03/09/2025 HISTORY: 39-year-old female presents for imaging evaluation with a palpable abnormality in the left axilla which the patient reports has been present for 3 weeks. The patient initially felt that the area (as in the interpretation related to shaving. Of note, the patient was originally at [facility] for baseline screening mammogram on 02/01/2025 at which time 3 groups of microcalcifications were suspected in the left breast. The patient underwent left diagnostic imaging on 02/11/2025 which identified 2 persistent groups of calcifications, with stereotactic biopsy recommendation of the more anterior group. Due to technical issues at our institution, the patient was referred to mid-breast breast cancer for stereotactic biopsy which she underwent on 03/02/2025 with pathology yielding radial scar/complex processing lesion. The patient was referred to Dr. Cerna for further management. She was sent for this evaluation from Dr. Cerna's today. Of note, the patient is currently considering undergoing surgical excision of the biopsy-proven complex causing lesion/radial scar. She will be due for six-month follow-up of the left breast (refer to separately dictated diagnostic report from 02/11/2025) in July 2025. RISK ASSESSMENT CALCULATION: Patient completed a breast cancer risk assessment during her appointment. Based upon the information she provided and her mammographic breast density, her lifetime risk of developing breast cancer is 11 % (Average Risk <15%; Intermediate / Moderate Risk 15-19%; High Risk > 20%). Risk assessment based upon the Tyrer-Cuzick v8 model. COMPARISON: Comparison is made to prior breast imaging studies dating back to 02/01/2025 (baseline screening mammogram performed at [facility]) as well as a left diagnostic mammogram performed at [facility] on 02/11/2025. Left AXILLARY ULTRASOUND: Scanning performed of the axilla. FINDINGS: There is no discrete or suspicious sonographic findings in the visualized left axilla. There is no sonographic evidence of malignancy. Only normal axillary structures and morphologically normal nonenlarged lymph nodes are present. All visualized lymph nodes in the left axilla demonstrating uniform nonthickened cortices and preserved fatty danica with cortices measuring 0.2 cm and smaller. us Genesis Cerna MD US ORDERABLES Final Resul t * MM Outside Mammogram Left (03/02/2025 10:33 AM CDT) Only the most recent of2 resultswithin the time period is included. Narrative [facility] - 03/12/2025 10:33 AM CDT This is a study from an outside facility that has been uploaded into PACS. us Provider [employer] IMAGING Final Result [facility] * (ABNORMAL) Mammo Left Diagnostic [facility] [place] (02/11/2025 9:06 AM CDT) Anatomical Region Laterality Modality Breast Left Mammography 02/11/2025 9:05 AM CDT Impressions 02/11/2025 10:52 AM CDT IMPRESSION: 1. Small group of microcalcifications in the anterior depth upper outer quadrant of the left breast are at a low-level of suspicion for malignancy and may represent layering microcalcifications. 2. Second smaller group of microcalcifications in the more posterior upper outer quadrant of the left breast probably represent benign layering calcifications. RECOMMENDATION: 1. Stereotactic guided core biopsy of the left breast is recommended. Recommend biopsy of the tiny group of microcalcifications in the anterior depth upper outer quadrant, 3 cm from the nipple on the cranial caudal view. 2. Pending benign biopsy results, six-month follow-up diagnostic left mammogram recommended to reassess the calcifications in the posterior upper quadrant of the left breast. Gerardo Casanova discussed the examination findings and recommendations with the patient the time of the examination. Our nurse navigator will contact the referring physician and schedule the patient to return for the procedure. Patient will also receive the exam results by lay letter. OVERALL ASSESSMENT: BI-RADS CATEGORY 4: SUSPICIOUS. (SUBSET CATEGORY 4B: MODERATE SUSPICION FOR MALIGNANCY). > Interpreting Provider: Danna Carrillo MD, FACR on 02/11/2025 10:52 AM Narrative 02/11/2025 10:52 AM CDT EXAMINATIONS: LEFT DIGITAL DIAGNOSTIC MAMMOGRAM AND BREAST TOMOSYNTHESIS LOCATION: [facility] EXAM DATE: 02/11/2025 HISTORY: Follow-up to an abnormal screening mammogram. 3 small groups of microcalcifications in the left breast. No reported family history of breast cancer. RISK ASSESSMENT CALCULATION: Patient completed a breast cancer risk assessment during her appointment 02/11/2025. Based upon the information she provided and her mammographic breast density, her lifetime risk of developing breast cancer is 14 % (Average Risk <15%; Intermediate / Moderate Risk 15-19%; High Risk > 20%). Risk assessment based upon the Tyrer-Cuzick v8 model. COMPARISON: Recent baseline screening mammogram dated 02/02/2025. TECHNIQUE: Diagnostic left mammography was performed.Tomosynthesis (3D) and reconstructed synthetic 2-D images acquired. Left true lateral and left CC and true lateral spot magnification compression views. A total of 3 images were obtained. Transpara AI was utilized. BREAST COMPOSITION: Category B: There are scattered areas of fibroglandular density. FINDINGS: No suspicious or linear/branching microcalcifications. In the upper outer quadrant of the breast, anterior depth, 3 cm from the nipple on the true lateral view is a small group of microcalcifications, spanning over 0.7 cm in extent on the true lateral view. Some of these may layer and these may represent layering calcifications. These are better seen on the true lateral view than the craniocaudal view. There is no associated soft tissue asymmetry. In the upper outer quadrant more posterior depth, 8 cm from nipple on the true lateral view is a small group of Brian calcifications, spanning over 0.3 similar extent. Some of these layer and these are likely benign. No other suspicious microcalcifications. Shirley Argueta FARM LABORER-NEWSPAPER PHOTOGRAPHER MAMMO ORDERABLES Final R esult * Mammo Bilat Screening W Yandel (02/01/2025 3:57 PM CDT) Anatomical Region Laterality Modality Breast Bilateral Mammography 02/02/2025 8:04 AM CDT Impressions 02/02/2025 8:32 AM CDT IMPRESSION: 1. Small group microcalcifications in the anterior to mid depth upper outer quadrant of the left breast. 2. Small group of microcalcifications in the superior posterior depth left breast on the MLO view. 3. Possible tiny third group microcalcifications in the slightly lateral mid depth left breast on the craniocaudal view. 4. No right mammographic evidence of malignancy. RECOMMENDATION: Diagnostic left mammogram. If indicated at that time, left breast ultrasound will be performed. Patient will be contacted and scheduled to return for the additional imaging. OVERALL ASSESSMENT: BI-RADS CATEGORY 0: INCOMPLETE: NEED ADDITIONAL IMAGING EVALUATION. > Interpreting Provider: Danna Carrillo MD, FACR on 02/02/2025 8:32 AM Narrative 02/02/2025 8:32 AM CDT EXAMINATIONS: BILATERAL DIGITAL SCREENING MAMMOGRAM AND BILATERAL BREAST TOMOSYNTHESIS LOCATION: [facility] EXAM DATE: 02/02/2025 HISTORY: Baseline screening mammogram. No reported family history of breast cancer. RISK ASSESSMENT CALCULATION: Patient completed a breast cancer risk assessment during her appointment 02/02/2025. Based upon the information she provided and her mammographic breast density, her lifetime risk of developing breast cancer is 14 % (Average Risk <15%; Intermediate / Moderate Risk 15-19; High Risk > 20%). Risk assessment based upon the BRCAPRO model. COMPARISON: None. This is a baseline exam. TECHNIQUE: Tomosynthesis (3D) and reconstructed synthetic 2-D images acquired and reviewed in the bilateral craniocaudal and mediolateral oblique projections. A total of 5 images obtained. Transpara AI was utilized in the interpretation. BREAST PARENCHYMAL COMPOSITION: Category B: There are scattered areas of fibroglandular density. FINDINGS: Right breast: No suspicious findings or evidence of malignancy. Left breast: Small group of microcalcifications in the lateral anterior depth breast, 3 cm from the nipple on the craniocaudal view. These project superiorly on the MLO view. Also the MLO view, second small group of microvascular calcifications in the superior posterior depth, 8 cm from nipple on the MLO view. These likely projected laterally on the craniocaudal view. Possible third tiny group microcalcifications in the slightly lateral mid depth breast on the craniocaudal view, 4 cm from the nipple. Gio Handy PA-C MAMMO ORDERABLES Trudi l Result * DERMATOPATHOLOGY (01/25/2025 2:08 PM CDT) Case Report Dermatopathology Report Case: [id number] Authorizing Provider: Talita Lopez MD Collected: 01/25/2025 02:08 PM Ordering Location: [facility] - Received: 01/27/2025 07:32 AM DermPath Lab Pathologist: Familia Huertas MD Specimens: A) - Skin, left inferior breast B) - Skin, left upper back 2:24 PM CDT DERMATOPATHOLOGY LABORATORY Final Diagnosis Specimen A. SKIN, left inferior breast: HALO NEVUS (D23.9) Specimen B. SKIN, left upper back: COMPOUND MELANOCYTIC NEVUS, IRRITATED (D22.5) 2:24 PM CDT DERMATOPATHOLOGY LABORATORY at 1424 CDT Clinical History A: R/O Halo Nevus B: R/O Atypia 2:24 PM CDT DERMATOPATHOLOGY LABORATORY Gross Description Specimen A: Received is one formalin filled container labeled with the patient's name and designated left inferior breast. The specimen consists of a shave biopsy measuring 6x3x2 mm. Jar 0. Specimen B: Received is one formalin filled container labeled with the patient's name and designated left upper back. The specimen consists of a shave biopsy measuring 4x2x1 mm. Jar 0. 2:24 PM CDT DERMATOPATHOLOGY LABORATORY Microscopic Description Specimen A. SKIN, left inferior breast: This melanocytic neoplasm is small, symmetrical, and slightly dome-shaped. It is characterized by nests of melanocytes at the dermal-epidermal junction and within the dermis that mature with depth. Intermingled with the melanocytes there is a dense lymphocytic infiltrate. Specimen B. SKIN, left upper back: There is melanin pigment in the stratum corneum. There are nests of melanocytes at the dermal-epidermal junction and within the dermis. 2:24 PM CDT DERMATOPATHOLOGY LABORATORY Disclaimer An external and internal positive and negative controls are appropriate for the histochemical, immunohistochemical and immunofluorescence stain(s) in this case (if any), except where stated explicitly. The performance characteristics of the stain(s) cited in this report were developed and its performance characteristic determined by the Dermatopathology Laboratory at [facility], directed by Dr. Garrett Huertas. These tests need not be, and therefore are not, approved by the [place] Food and Drug Administration. The tests are used for clinical purposes. Billing Codes Specimen Charges Stain Charges 52729 23087 1 1 2:24 PM CDT DERMATOPATHOLOGY LABORATORY Embedded Images 2:24 PM CDT DERMATOPATHOLOGY LABORATORY Pathology/Cytology TISSUE SPECIMEN FROM SKIN / Unknown 01/25/2025 2:08 PM CDT 01/27/2025 7:32 AM CDT Miscellaneous samples (specimen) TISSUE SPECIMEN FROM SKIN / Unknown 01/25/2025 2:08 PM CDT 01/27/2025 7:32 AM CDT Talita Lopez MD LAB - PATHOLOGY/CYTOLOGY OR DERABLES Final Result DERMATOPATHOLOGY LABORATORY [facility] - Department of Dermatology [address] [place] [address], [facility] [phone] from Last 3 Months Insurance [facility] Care Teams Mobile Home Set Up Person Relationship Specialty Start Date End Date Shirley Argueta APRN-CORINNE [address] [phone] PCP - General Nurse Practitioner 04/30/24
--- OUTSIDE RECORDS SUMMARY | 2025-04-20 14:04 | XMS_ITS | Encounter Summary ---
Author Organization [facility] Address [address] [facility] [address] Care Team Providers Care Inspector Poising Name Role Phone Shirley Argueta APRN-PROTOCOL MANAGER Primary Care Provider + Encounter Details Date Type Department Care Team (Late st Contact Info) Description 01/25/2025 Lab Requisition [facility] - DermPath Lab [address] [place] [address] [facility] [place] [address] [place] [address] Social History Tobacco Use Types Packs/Day Years Used Date Smoking Tobacco: Former Cigarettes Smokeless Tobacco: Never AUDIT-C Answer Date Recorded Q1: How often [...] Orientation Straight 01/27/2025 8: 36 PM CDT documented as of this encounter Functional Status * Is person deaf or have serious hearing difficulty? Answer Date of Assessment Author No 06/12/2024 11:46 AM CDT ZhangWellington owens RN * Is person blind or have serious difficulty seeing? Answer Date of Assessment Author No 06/12/2024 11:46 AM CDT Wellington Zhang RN * Does person have serious difficulty walking/climbing stairs? Answer Date of Assessment Author No 06/12/2024 11:46 AM NANCIT Wellington Zhang RN * Does person have difficulty dressing/bathing? Answer Date of Assessment Author No 06/12/2024 11:46 AM NANCIT Wellington Zhang RN * Does person have difficulty doing errands alone? Answer Date of Assessment Author No 06/12/2024 11:46 AM NANCIT Wellington Zhang RN documented as of this encounter Mental Status * Does person have difficulty concentrating/remembering/making decisions? Answer Entry Date Author No 06/12/2024 11:46 AM NANCIT Wellington Zhang RN documented in this encounter Plan of Treatment Upcoming Encounters Date Type Department Care Team (Late st Contact Info) Description 09/16/2025 10:00 AM CDT Appointment [address] [address] Genesis Cerna MD [address] [place] [phone] 09/16/2025 10:30 AM CDT Appointment [address] [address] Genesis Cerna MD [address] [place] [phone] 09/16/2025 11:30 AM CDT Office Visit [facility] - General Surgery [address] [place] [phone] Genesis Cerna MD [address] [place] [phone] Scheduled Orders Name Type Priority Associated Diagnoses Orde r Schedule DERMATOPATHOLOGY Pathology Cytology Routine Ordered: 01/25/2025 documented as of this encounter Visit Diagnoses Not on filedocumented in this encounter Care Teams Inspector Poising Relationship Specialty Start Date End Date Shirley Argueta APRN-CORINNE [address] [phone] PCP - General Nurse Practitioner 04/30/24 documented as of this encounter
--- OUTSIDE RECORDS SUMMARY | 2025-04-20 14:04 | XMS_ITS | Encounter Summary ---
Author Organization [facility] Address [address] [place] [address] Care Team Providers Care Auxiliary Equipment Operator Name Role Phone Unavailable Primary Care Provider Unavailabl e Encounter Details Date Type Department Care Team (Late st Contact Info) Description 03/16/2025 Results Follow-Up [facility] Primary Care [facility] [address] [facility] [address] [place] [phone] Gio Handy PA-C [address] [place] [address] VITAMIN B12 AND FOLATE, TSH REFLEXIVE, LIPID PANEL, Additional followed-up results: 2 Social History Tobacco Use Types Packs/Day Years Used Date Smoking Tobacco: Former Cigarettes 0.3 10 Comments:Quit 2011 Alcohol Use Standard Drinks/Week Comments Not Currently 0 (1 standard drink = 0.6 oz pure alcohol) A couple beers a few times a year Comments No Sex and Gender Information Value Date Recorded Sex Assigned at Female 01/19/2025 12:34 PM FILING AND POLISHING SUPERVISOR Legal Sex Female 3:02 PM FILING AND POLISHING SUPERVISOR Gender Identity Female 01/19/2025 12:34 PM FILING AND POLISHING SUPERVISOR Sexual Orientation Straight 01/19/2025 12 :34 PM FILING AND POLISHING SUPERVISOR documented as of this encounter Plan of Treatment Upcoming Encounters Date Type Department Care Team (Late st Contact Info) Description 07/26/2025 3:20 PM CDT Office Visit [facility] Care [facility] [address] [place] [address] Gio Handy PA-C [address] [place] [phone] documented as of this encounter Visit Diagnoses Not on filedocumented in this encounter
--- OUTSIDE RECORDS SUMMARY | 2025-04-20 14:04 | XMS_ITS | Encounter Summary ---
Author Organization [facility] Address [address] [place] [address] Care Team Providers Care Senior Center Director Name Role Phone Kendall Shirley LANCE-PATTERNMAKER PRESSURE CAST Primary Care Provider + Encounter Details Date Type Department Care Team (Late st Contact Info) Description 01/25/2025 Lab Requisition [facility] - DermPath Lab [address] [facility], [place] [address] Talita Lopez MD [address] [facility] [address] [place] [address] Social History Tobacco Use Types Packs/Day Years [...] 11:46 AM CDT Wellington Zhang RN * Is person blind or have [...] Info) Description 09/16/2025 10:00 AM CDT Appointment [address] [address] Genesis Cerna MD [address] [place] [phone] 09/16/2025 10:30 AM CDT Appointment [address] [address] Genesis Cerna MD [address] [place] [phone] 09/16/2025 11:30 AM CDT Office Visit [facility] - General Surgery [address] [place] [phone] Genesis Cerna MD [address] [place] [phone] documented as of this encounter Procedures Procedure Name Priority Date/Time Associated Diagnosis Comments DERMATOPATHOLOGY Routine 01/25/2025 2:08 PM CDT documented in this encounter Results * DERMATOPATHOLOGY (01/25/2025 2:08 PM CDT) Case Report Dermatopathology Report Case: [id number] Authorizing Provider: Talita Lopez MD Collected: 01/25/2025 02:08 PM Ordering Location: [facility] - Received: 01/27/2025 07:32 AM DermPath [...] characteristic determined by the Dermatopathology Laboratory at [facility], directed by Dr. Garrett Huertas. These tests need not be, and therefore are not, approved by the [place] Food and Drug Administration. The tests are used for clinical purposes. Billing Codes Specimen Charges Stain Charges [id number] 1 1 5 2:24 PM CDT DERMATOPATHOLOGY LABORATORY Embedded Images 2:24 PM CDT DERMATOPATHOLOGY LABORATORY Pathology/Cytology TISSUE SPECIMEN FROM SKIN / Unknown 01/25/2025 2:08 PM CDT 01/27/2025 7:32 AM CDT Miscellaneous samples (specimen) TISSUE SPECIMEN FROM SKIN / Unknown 01/25/2025 2:08 PM CDT 01/27/2025 7:32 AM CDT Talita Lopez MD LAB - PATHOLOGY/CYTOLOGY OR DERABLES Final Result DERMATOPATHOLOGY LABORATORY [facility] - Department of Dermatology [facility] Medicine [address] [place] [address], [address] [phone] documented in this encounter Visit Diagnoses Not on filedocumented in this encounter Care Teams Senior Center Director Relationship Specialty Start Date End Date Shirley Argueta APRN-CORINNE [address] [phone] PCP - General Nurse Practitioner 04/30/24 documented as of this encounter
--- OUTSIDE RECORDS SUMMARY | 2025-04-20 14:04 | XMS_ITS | Referral Summary ---
Author Organization [facility] Address [address] [place] [address] Care Team Providers Care Sanitary Landfill Supervisor Name Role Phone Shirley Argueta NP Primary Care Provider [phone] Allergies Active Allergy Reactions Criticality Noted Date Comments Cefuroxime Swelling Medium 02/21/2021 Levofloxacin Hives,Swollen tongue High 02/21/2021 Medications albuterol HFA (PROVENTIL HFA,VENTOLIN HFA,PROAIR HFA) 90 mcg/actuation inhaler albuterol sulfate HFA 90 mcg/actuation aerosol inhaler TAKE 2 PUFFS BY MOUTH EVERY 4 HOURS Activ e albuterol HFA (PROVENTIL HFA,VENTOLIN HFA,PROAIR HFA) 90 mcg/actuation inhaler albuterol sulfate HFA 90 mcg/actuation aerosol inhaler Active amoxicillin-cl avulanate (AUGMENTIN) 875-125 mg per tablet amoxicillin 875 mg-potassium clavulanate 125 mg tablet TAKE 1 TABLET BY MOUTH EVERY 12 HOURS FOR 10 DAYS Active guaiFENesin-co deine (GUAITUSS AC) liquid 100-10 mg/5 mL Cheratussin AC 10 mg-100 mg/5 mL oral liquid Active cyclobenzaprin e (FLEXERIL) 5 mg tablet cyclobenzaprine 5 mg tablet Take 1 tablet(s) 3 TIMES A DAY by oral route as needed for neck pain/spasms Active doxycycline (doxycycline hyclate) 100 mg capsule doxycycline hyclate 100 mg capsule TAKE 1 CAPSULE BY MOUTH TWICE A DAY FOR 10 DAYS Active escitalopram (LEXAPRO) 10 mg tablet escitalopram 10 mg tablet TAKE 1 TABLET BY MOUTH EVERY DAY Active fluconazole (DIFLUCAN) 150 mg tablet fluconazole 150 mg tablet TAKE 1 TAB(S) ORALLY ONCE MAY REPEAT X 1 Active fluticasone propionate (FLONASE) 50 mcg/actuation nasal spray SPRAY 2 SPRAYS INTO EACH NOSTRIL EVERY DAY 01/19/20 21 Active HYDROcodone-ac etaminophen (NORCO) 7.5-325 mg per tablet hydrocodone 7.5 mg-acetaminophen 325 mg tablet Active Active Problems Problem Noted Date Diagnosed Date Abdominal pain 02/21/2021 Acute sinusitis 02/21/2021 Asthma 02/21/2021 Bronchitis 02/21/2021 Cough 02/21/2021 Diarrhea 02/21/2021 Dysphagia 02/21/2021 Earache symptoms 02/21/2021 Herniated lumbar intervertebral disc 02/21/2021 Low back pain 02/21/2021 Neck pain 02/21/2021 Paresthesia of upper limb 02/21/2021 Pediculosis capitis 02/21/2021 Pertussis 02/21/2021 Seasonal allergies 02/21/2021 Verruca plantaris 02/21/2021 Verruca vulgaris 02/21/2021 Vitamin B12 deficiency (non anemic) 02/21/2021 Chiari malformation type I 12/25/2020 Immunizations Immunization Administration Dates Next Due Tdap 02/22/2016 Social History Tobacco Use Types Packs/Day Years Used Date Smoking Tobacco: Former Cigarettes 0.5 10 2 000 - 2009 Smokeless Tobacco: Never Tobacco Cessation:Counseling Given: Yes AUDIT-C Answer Date Recorded Q1: How often do you have a drink containing alc ohol? Never 02/21/2021 Average Number of Drinks Not on file 021 Q3: How often do you have si x or more drinks on one occasion? Never 02/21/2021 Personal Safety Answer Date Recorded Getting School Help Needed Not on file 01/17 Comments Unknown Sex and Gender Information Value Date Recorded Sex Assigned at Not on file Legal Sex Female 10:11 AM CDT Gender Identity Not on file Sexual Orientation Not on file Occupation Industry Job Start Date Job End Date cook Not on file Not on file Not on file Last Filed Vital Signs Vital Sign Reading Time Taken Comments Blood Pressure - - Pulse - - Temperature - - Respiratory Rate - - Oxygen Saturation - - Inhaled Oxygen Concentration - - Weight 94 kg (207 lb 3.2 oz) 02/21/2021 9:45 AM CDT Height 172.7 cm (5' 8) 02/21/2021 9:45 AM CDT Body Mass Index 31.5 02/21/2021 9:45 AM CDT Plan [place] [address] [place] [address] [place] [address] [place] [address] [place] [address] [facility] Care Teams Sanitary Landfill Supervisor Relationship Specialty Start Date End Date Shirley Argueta NP [facility] [place], [place] [id number] PCP - General Nurse Practitioner 01/08/21
--- OUTSIDE RECORDS SUMMARY | 2025-04-20 14:04 | XMS_ITS | Clinical Summary ---
Author Organization [facility] Address [facility] [place] [address] Care Team Providers Care Patch Sander Name Role Phone Shirley Argueta NP Primary Care Provider [phone] Allergies Active Allergy Reactions Criticality Noted Date [...] Immunization Administration Dates Next Due Tdap 02/22/2016 Surgical History Surgery Date Site/Laterality Comments CHOLECYSTECTOMY DILATION AND CURETTAGE OF UTERUS SINUS SURGERY Medical History Medical History Date Comments Kidney infection Sinusitis Family History Medical History Relation Name Comments Heart attack Father Relation Name Status Comments Father Social History Tobacco Use Types Packs/Day Years Used Date Smoking Tobacco: Former Cigarettes 0.5 10 2 000 - 2010 Smokeless Tobacco: Never Tobacco Cessation:Counseling Given: Yes [...] file Not on file Not on file Obstetrics History Last Filed Vital Signs Vital Sign Reading [...] Plan of Treatment Not on file [place] [employer] [place] [employer] [place] [facility] Care Teams Patch Sander Relationship Specialty Start Date End Date Shirley Argueta NP [facility] [place] [address] PCP - General Nurse Practitioner 01/08/21
--- OUTSIDE RECORDS SUMMARY | 2025-04-20 14:04 | XMS_ITS | Clinical Summary ---
Author Organization [facility] Alexis bucio Bryan Address [address] [place] [address] Phone Care Team Providers Care Ironmolder Name Role Phone Unavailable Primary Care Provider Unavailabl e Allergies Active Allergy Reactions Criticality Noted Date Comments Cefuroxime Swelling,Nausea and Vomiting Medium 02/21/2021 Throat and mouth swelling and itching Levofloxacin Hives,Swelling High 02/21/2021 Throat and mouth swelling and itching Medications Lexapro 20 mg tablet Active drospirenone, contraceptive, (Slynd) 4 mg (28) Tablet Take 1 Tablet by mouth daily. Active Vyvanse 60 mg capsuleIndication s:Attention deficit hyperactivity disorder (ADHD), predominantly inattentive type Take 1 Capsule (60 mg) by mouth daily. Max Daily Amount: 60 mg 30 Capsule 5 Active Vyvanse 60 mg capsuleIndication s:Attention deficit hyperactivity disorder (ADHD), predominantly inattentive type Take 1 Capsule (60 mg) by mouth daily. Max Daily Amount: 60 mg 30 Capsule 5 04/10/20 25 Discontinu ed(Reorder ) Active Problems No known active problems Encounters Date Type Department Care Team Description 04/10/2025 Telephone [facility] Primary Care [facility] [address] [place] [address] Gio Handy PA-C Medication Refill 04/08/2025 External Device Data [facility]STRACTION Provider, Abstract 04/07/2025 External Device Data [facility] Provider, Abstract 04/06/2025 External Device Data [facility] Provider, Abstract 03/16/2025 Results Follow-Up [facility] [address] [address] Gio Handy PA-C VITAMIN B12 AND FOLATE, TSH REFLEXIVE, LIPID PANEL, Additional followed-up results: 2 03/16/2025 Orders Only [facility] [address] [phone] Yolette Alexander Vitamin B12 deficiency (non anemic); Encounter for routine adult health examination without abnormal findings 03/16/2025 Orders Only [facility] [address] [phone] Provider, Abstract 03/12/2025 Refill [facility] [address] [place] [phone] Gio Handy PA-C 03/12/2025 Telephone [facility] [address] [place] [phone] Gio Handy PA-C Medication Refill 03/05/2025 Orders Only [facility] [address] [place] [address] Provider, Abstract 03/05/2025 Telephone [facility] [address] [phone] Gio Handy PA-C Provider Call 03/03/2025 Orders Only [facility] [address] [place] [phone] Gio Handy PA-C Abnormal mammogram; Attention deficit hyperactivity disorder (ADHD), predominantly inattentive type 02/22/2025 Orders Only [place] [address] [address] Provider, Abstract 02/19/2025 Telephone [facility] [address] [address] Gio Handy PA-C Provider Call; Patient Communication; Patient Communication; Provider Call 02/03/2025 External Device Data [facility] Provider, Abstract 01/28/2025 Telephone [place] [address] [address] Gio Handy PA-C Mammogram order; Patient Communication 01/26/2025 External Device Data [facility] Provider, Abstract 01/26/2025 External Device Data [facility] Provider, Abstract 01/23/2025 External Device Data [facility] Provider, Abstract 01/22/2025 External Device Data [facility] Provider, Abstract 01/21/2025 3:00 PM BLOCKER POLISHING Office Visit [facility] [address] [address] Gio Handy, MIMI Encounter for routine adult health examination without abnormal findings (Primary Dx); Attention deficit hyperactivity disorder (ADHD), predominantly inattentive type; Generalized anxiety disorder; Atypical nevus; Vitamin B12 deficiency (non anemic); Screening mammogram, encounter for; Declined influenza vaccine; 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 01/21/2025 Telephone [facility] [address] [place] [phone] Korina Hu MD New Patient Lost: Late for Appointment will be there by 3:10; New Patient late and Lost will be there by 3:10 01/20/2025 External Device Data [facility] Provider, Abstract 01/19/2025 External Device Data [facility] Provider, Abstract 01/19/2025 External Device Data [facility] Provider, Abstract 01/18/2025 Telephone [facility] [address] [phone] Gio Handy PA-C Information from Last 3 Months Family History Medical History Relation Name Comments Osteoporosis Mother Mom Other Sister Sister JRA Relation Name Status Comments Mother Mom Alive Sister Sister Alive Social History Tobacco Use Types Packs/Day Years Used Date Smoking Tobacco: Former Cigarettes 0.3 10 Tobacco Cessation:Counseling Given: Not Answered Comments:Quit 2011 Alcohol Use Standard Drinks/Week Comments Not Currently 0 (1 standard drink = 0.6 oz pure alcohol) A couple beers a few times a year Comments No Sex and Gender Information Value Date Recorded Sex Assigned at Female 01/19/2025 12:34 PM BLOCKER POLISHING Legal Sex Female 3:02 PM BLOCKER POLISHING Gender Identity Female 01/19/2025 12:34 PM BLOCKER POLISHING Sexual Orientation Straight 01/19/2025 12 :34 PM BLOCKER POLISHING Last Filed Vital Signs Vital Sign Reading Time Taken Comments Blood Pressure 118/72 01/21/2025 3:14 PM BLOCKER POLISHING Pulse 88 01/21/2025 3:14 PM BLOCKER POLISHING Temperature 37.2 C (99 F) 01/21/2025 3:14 PM BLOCKER POLISHING Respiratory Rate - - Oxygen Saturation 97% 01/21/2025 3:14 PM BLOCKER POLISHING Inhaled Oxygen Concentration - - Weight 85.3 kg (188 lb) 01/21/2025 3:14 PM BLOCKER POLISHING Height 172.7 cm (5' 8) 01/21/2025 3:14 PM BLOCKER POLISHING Body Mass Index 28.59 01/21/2025 3:14 PM BLOCKER POLISHING Plan of Treatment Upcoming Encounters Date Type Department Care Team (Late st Contact Info) Description 07/26/2025 3:20 PM CDT Office Visit [facility] Primary Care [facility] [address] [phone] Gio Handy PA-C [address] [place] [address] Health Maintenance Due Date Last Done Comments Pre-Diabetes and Diabetes Screening 1984 HEPATITIS B VACCINES (1 of 3 - 19+ 3-dose series) 2003 HPV/Cotest (21-29) 2005 CERVICAL CANCER SCREENING 2014 HPV/Cotest (30-65) 2014 PAP SMEAR 2014 BREAST CANCER SCREENING 02/11/2026 02/11/2025 DTAP/TDAP/TD VACCINES (2 - T d or Tdap) 02/21/2026 02/22/2016 INFLUENZA VACCINE Completed 01/21/2025 HPV VACCINES Aged Out No longer eligi ble based on patient's age to complete this topic Procedures Procedure Name Priority Date/Time Associated Diagnosis Comments PATHOLOGY REPORT Routine 03/05/2025 11:3 2 AM CDT PATHOLOGY REPORT Routine 03/05/2025 11:3 2 AM CDT MAMMO STEREOTACTIC BREAST BX LT Routine 03/02/2025 Abnormal mammogram MAMMO UNILATERAL DIAG LEFT Routine 02/11/2025 8:48 AM CDT CBC WITH DIFFERENTIAL Routine 01/25/2025 11:52 AM CDT Encounter for routine adult health examination without abnormal findings COMPREHENSIVE METABOLIC PANEL Routine 01/25/2025 11:52 AM CDT Encounter for routine adult health examination without abnormal findings LIPID PANEL Routine 01/25/2025 11:52 AM CDT Encounter for routine adult health examination without abnormal findings TSH REFLEXIVE Routine 01/25/2025 11:52 AM CDT Encounter for routine adult health examination without abnormal findings VITAMIN B12 AND FOLATE Routine 11:52 AM CDT Vitamin B12 deficiency (non anemic) VITAMIN B12 AND FOLATE Routine 11:50 AM CDT TSH Routine 01/25/2025 11:50 AM CDT LIPID PANEL Routine 01/25/2025 11:49 AM CDT COMPREHENSIVE METABOLIC PANEL Routine 01/25/2025 11:49 AM CDT CBC WITH DIFFERENTIAL Routine 01/25/2025 11:48 AM CDT from Last 3 Months Results * PATHOLOGY REPORT (03/05/2025 11:32 AM CDT) Only the most recent of2 resultswithin the time period is included. us Abstract Provider PATHOLOGY/CYTOLOGY ORDERABLES Final Result [facility] CLIA# [id number] [place] [address] * MAMMO STEREOTACTIC BREAST BX LT (03/02/2025) Anatomical Region Laterality Modality Breast Left Mammography Tissue SPECIMEN FROM BREAST / Unknown 03/02/2025 Gio Handy PA-C MAMMO ORDERABLES Trudi l Result * MAMMO UNILATERAL DIAG LEFT (02/11/2025 8:48 AM CDT) Anatomical Region Laterality Modality Breast Left Mammography us Abstract Provider MAMMO ORDERABLES Final Result * CBC WITH DIFFERENTIAL (01/25/2025 11:52 AM CDT) Only the most recent of2 resultswithin the time period is included. ABSTRACTED WBC [facility] ABSTRACTED RBC [facility] AB[facility]CTED HEMOGLOBIN [facility] AB[facility]CT[facility] HEMATOCRIT [facility] ABSTRACTED MCV [facility] ABSTRACTED PLATELETS [facility] ABSTRACTED NEUTROPHIL ABSOLUTE [facility] ABSTRACTED LYMPHOCYTE ABSOLUTE [facility] Blood 01/25/2025 11:5 2 AM CDT us Gio Handy PA-C HEMATOLOGY ORDERABLES Final Result [facility] [phone] * COMPREHENSIVE METABOLIC PANEL (01/25/2025 11:52 AM CDT) Only the most recent of2 resultswithin the time period is included. ABSTRACTED SODIUM [facility] ABSTRACTED POTASSIUM [facility] AB[facility]CT[facility] CHLORIDE [facility] ABSTRACTED CO2 [facility] ABSTRACTED CALCIUM [facility] ABSTRA[facility]ED BUN [facility] ABSTRACTED CREATININE [facility] ABSTRACTED GLUCOSE [facility] ABSTRACTED TOTAL PROTEIN [facility] AB[facility]CTED ALBUMIN [facility] AB[facility] BILIRUBIN TOTAL [facility] AB[facility]CT[facility] ALKALINE PHOSPHATASE [facility] ABSTRACTED AST [facility] ABSTRACTED ALT [facility] ABSTRACTED GFR [facility] AB[facility]CT[facility] GFR, [facility] AB[facility] ANION GAP [facility] Blood 01/25/2025 11:5 2 AM CDT Gio Handy PA-C CHEMISTRY ORDERABLES Final Result Performing Organization Address City/[facility] Co de Phone Number [facility] [phone] * LIPID PANEL (01/25/2025 11:52 AM CDT) Only the most recent of2 resultswithin the time period is included. ABSTRACTED CHOLESTEROL [facility] ABSTRACTED TRIGLYCERIDE [facility] ABSTRACTED HDL [facility] ABSTRACTED LDL CALCULATED [facility] Blood 01/25/2025 11:5 2 AM CDT Gio Handy PA-C CHEMISTRY ORDERABLES Final Result Performing Organization Address [facility] Co de Phone Number [facility] [phone] * TSH REFLEXIVE (01/25/2025 11:52 AM CDT) Blood 01/25/2025 11:5 2 AM CDT Gio Handy PA-C CHEMISTRY ORDERABLES Final Result Performing Organization Address [facility] Co de Phone Number [facility] [phone] * VITAMIN B12 AND FOLATE (01/25/2025 11:52 AM CDT) Only the most recent of2 resultswithin the time period is included. Blood 01/25/2025 11:5 2 AM CDT Gio Handy PA-C CHEMISTRY ORDERABLES Final Result Performing Organization Address City/[facility] Co de Phone Number [facility] [phone] * TSH (01/25/2025 11:50 AM CDT) Blood us Abstract Provider CHEMISTRY ORDERABLES Final Res ult [facility]INGER# [address] [place] [address] from Last [address] [place] [id number] [employer] BLUE ACCESS/[place] [address] [id number]
[2025-04-20 21:34] LABS: Hematocrit 43.2 % (37.0-47.0); Hemoglobin 13.9 g/dL (12.0-15.0); Mean Corpuscular HGB Conc 32.2 g/dl (32-36); Mean Corpuscular Hemoglobin 29.3 pg (26-34); Mean Corpuscular Volume 91.1 fl (80-100); Mean Platelet Volume 11.2 fl (7.4-10.4); Platelet Count Result 294 k/mm3 (150-375); Red Blood Count 4.74 M/mm3 (4.2-5.4); Red Cell Distribution Width 12.7 % (11.5-14.5); White Blood Count 8.4 K/mm3 (4.5-10.0)
[2025-04-20 22:43] LABS: Alanine Aminotransferase 43 U/L (6-35); Albumin Level 4.7 g/dL (3.5-5.1); Alkaline Phosphatase 74 U/L (38-126); Anion Gap 8 mmol/L (4-12); Aspartate Amino Transferase 72 U/L (14-36); Bilirubin,Total 0.6 mg/dL (0.2-1.3); Blood Urea Nitrogen 11 mg/dL (7-17); Calcium 9.7 mg/dL (8.4-10.2); Carbon Dioxide 30 mmol/L (22-30); Chloride 99 mmol/L (98-107); Cholesterol 210 mg/dL (0-200); Estimated Glomerular Filt Rate > 60; Glucose 93 mg/dL (65-110); HDL Direct 82 mg/dL; Potassium 3.9 mmol/L (3.4-5.0); Sodium 137 mmol/L (137-145); Total Protein 8.4 g/dL (6.3-8.2); Triglycerides 62 mg/dL (<150)
[2025-04-20 22:44] LABS: Free T4 Free Thyroxine 1.04 ng/dL (0.78-2.19)
[2025-04-20 23:13] LABS: LDL Cholesterol Direct 90 mg/dL
[2025-04-20 23:15] LABS: Thyroid Stimulating Hormone 0.693 uIU/mL (0.465-4.680)
[2025-04-22 03:04] LABS: ANA Cascade Screen NEGATIVE (NEGATIVE)
== END 2025-04-20 14:01 | disposition home or self-care (01) ==
LOC: ANHBWCLAB 14:01
PROVIDERS: PCP Nurse Practitioner Adult Health; Visit Provider Nurse Practitioner Adult Health
DX: Z00.00 Encounter for general adult medical examination without abnormal findings (principal); E66.9 Obesity, unspecified; E53.8 Deficiency of other specified B group vitamins; M25.50 Pain in unspecified joint
CPT/HCPCS: 36415; 80053; 80061; 82607; 83036; 84439; 84443; 85027; 86038; 86225; 86235; 86364

== ENCOUNTER 2025-05-07 08:21 | Outpatient (CLI) | payer BC, SELFPAY ==
--- NOTE | ~2025-05-07 | US_ITS ---
Limited Abdominal Sonogram: Real-time sonographic imaging of the right upper quadrant was performed. Clinical History: Abnormal serum enzyme levels Findings: The liver appears normal with no evidence of mass lesion or bile duct dilatation. Main por marvin vein demonstrates normal direction of flow. The gallbladder is absent, compatible prior cholecyst ectomy. The common bile duct measures 4 mm. The visualized pancreas, aorta, and IVC are unremarkable . Impression: Status post cholecystectomy, otherwise unremarkable exam. Reviewed, dictated and finalized at location . Impression: Status post cholecystectomy, otherwise unremarkable exam.
== END 2025-05-07 08:22 | disposition home or self-care (01) ==
LOC: GOSHIMG 08:22
PROVIDERS: PCP Nurse Practitioner Adult Health; Visit Provider Nurse Practitioner Adult Health
DX: R74.8 Abnormal levels of other serum enzymes (principal); Z90.49 Acquired absence of other specified parts of digestive tract
CPT/HCPCS: 76705